=== PATIENT | male | born 2005 | race Caucasian/White ===

== ENCOUNTER 2025-04-28 17:12 | Emergency (ER) | payer SELFPAY ==
[~2025-04-28] VITALS: Ht 175.3 cm; Wt 66.0 kg
[2025-04-28 17:22] VITALS: O2SAT 95
[2025-04-28] MEDS: LIDOCAINE HCL 1% 20ML VIAL INFIL ONE (18:05)
[2025-04-28] MEDS ORDERED: IBUP-2030 MT (18:49)
[2025-04-28 19:04] VITALS: BP 115/66; PULSE 70; RESP 18; TEMP 36.7; O2SAT 97
== END 2025-04-28 19:05 | disposition home or self-care (01) ==
LOC: ER 17:12
DX: S61.512A Laceration without foreign body of left wrist, initial encounter (principal); W26.8XXA Contact with other sharp object(s), not elsewhere classified, initial encounter; Y93.89 Activity, other specified; Y92.89 Other specified places as the place of occurrence of the external cause; Y99.8 Other external cause status
CPT/HCPCS: 12004; 99283; J2003; Z7610 ×4; A6449; 99282

== ENCOUNTER 2025-04-29 19:50 | Emergency (ER) | payer SELFPAY ==
[~2025-04-29] VITALS: Ht 177.8 cm; Wt 69.3 kg
[~2025-04-29 19:50] MED LIST: IBUP-2030 MT
[2025-04-29 20:43] VITALS: O2SAT 100
[2025-04-29] MEDS: BACITRACIN ZINC OINT UDPKT TOP ONE (22:37)
[2025-04-29 22:41] VITALS: BP 106/66; PULSE 52; RESP 16; TEMP 36.7; O2SAT 100
== END 2025-04-29 22:46 | disposition home or self-care (01) ==
LOC: ER 19:50
DX: S61.512D Laceration without foreign body of left wrist, subsequent encounter (principal); W26.8XXD Contact with other sharp object(s), not elsewhere classified, subsequent encounter
CPT/HCPCS: 99282

== ENCOUNTER 2025-05-06 11:13 | Emergency (ER) | payer SELFPAY ==
[~2025-05-06] VITALS: Ht 165.1 cm; Wt 61.0 kg
[2025-05-06 11:17] VITALS: PULSE 75; RESP 14; O2SAT 99
[2025-05-06 12:00] VITALS: TEMP 36.7
== END 2025-05-06 12:12 | disposition home or self-care (01) ==
LOC: ER 11:13
DX: S61.512D Laceration without foreign body of left wrist, subsequent encounter (principal); X58.XXXD Exposure to other specified factors, subsequent encounter
CPT/HCPCS: 99282